=== PATIENT | female | born 2000 | race Hispanic/Latino ===

== ENCOUNTER 2021-07-05 14:05 | Emergency (ER) ==
[2021-07-05 14:40] VITALS: BP 132/79
== END 2021-07-05 15:20 ==
LOC: ED 14:05
DX: R07.89 Other chest pain (principal); J02.9 Acute pharyngitis, unspecified; Z53.21 Procedure and treatment not carried out due to patient leaving prior to being seen by health care provider

== ENCOUNTER 2021-10-12 15:19 | Emergency (ER) | payer MEDICAID ==
--- NOTE | 2021-10-12 16:16 | Emergency Department Report ---
HPI - General Chief Complaint: Extremity Injury, Lower Time Seen by Provider: 10/12/21 15:55 - HPI HPI: 20-year-old -[place] female presents to the emergency department with complaint of right lateral ankle pain and right lateral foot pain since she twisted her foot and ankle while going down stone on yesterday. She says that she has injured the same foot and ankle 2 previous times within the same year but has never had it evaluated. She rates the pain at an 8 out of 10 in intensity. It worsens with palpation, movement, or attempting to bear weight. The patient is having difficulty with bearing weight and ambulation secondary to the pain. She denies any other past medical history. She has not taken anything for symptoms prior to presentation today. ED Past Medical Hx - Surgical History Additional Surgical History: tobsils - Medications Home Medications: Home Medications Medication Instructions Recorded Confirmed Last Taken Type Ibuprofen [Motrin 800 MG tab] 800 mg PO Q8HR PRN #20 tablet 10/12/21 Unknown Rx ED Review of Systems ROS: Stated complaint: RIGHT ANKLE INJURY Other details as noted in HPI Comment: All other systems reviewed and negative Constitutional: denies: chills, fever Musculoskeletal: joint swelling, arthralgia Skin: denies: rash, lesions Neurological: denies: numbness, paresthesias Physical Exam - Physical Exam Physical Exam: GENERAL: The patient is well-developed well-nourished. HENT: Normocephalic. Atraumatic. Patient has moist mucous membranes. EYES: Extraocular motions are intact. NECK: Supple. Trachea is midline. SKIN: Nonpitting swelling of the circumferential right ankle and of the dorsal midfoot. NEURO: The patient is awake, alert, and oriented. The patient is cooperative. The patient has no focal neurologic deficits. Normal speech. MUSCULOSKELETAL: Tenderness to palpation along the right lateral malleolus and right lateral midfoot. +2/4 dorsalis pedis pulse and capillary refill less than 2 seconds. ED Medical Decision Making - Radiology Data Radiology results: image reviewed interpreted by me: X-ray of the right ankle and right foot does not show any fracture, dislocation, or any other acute process. - Medical Decision Making The patient rolled her foot and ankle yesterday and presents with pain and swelling. She is neurovascularly intact. X-rays do not show any fracture, dislocation, or any acute process. She was placed in a splint and placed on crutches to be nonweightbearing. She was given outpatient referrals for orthopedist. Critical Care Time: No Critical care attestation.: If time is entered above; I have spent that time in minutes in the direct care of this critically ill patient, excluding procedure time. ED Disposition Clinical Impression: Right foot pain Right ankle sprain Qualifiers: Encounter type: initial encounter Involved ligament of ankle: unspecified ligament Qualified Code(s): S93.401A - Sprain of unspecified ligament of right ankle, initial encounter Disposition: HOME / SELF CARE / HOMELESS Is pt being admited?: No Condition: Stable Instructions: Ankle Sprain, Elastic Bandage and RICE Therapy, Foot Pain Additional Instructions: Please follow-up with a primary care physician. I am giving you a referral for a local orthopedist, Dr. Quintero. Return to the emergency department with any worsening of your symptoms, new or concerning symptoms not addressed during this current emergency department visit, or with any acute distress. Prescriptions: Ibuprofen [Motrin 800 MG tab] 800 mg PO Q8HR PRN #20 tablet PRN Reason: Pain , Severe (7-10) Referrals: JABIER QUINTERO MD [Staff Physician] - 3-5 Days Time of Disposition: 16:58
[2021-10-12 16:22] VITALS: BP 137/91
[2021-10-12] MEDS ORDERED: IBUPROFEN 800 MG TAB PO ONE (16:43)
--- NOTE | 2021-10-12 17:45 | XRay Report ---
Right ankle-3 views Right foot-4 views INDICATION: Acute right foot and ankle pain. COMPARISON: None. IMPRESSION: No acute fracture in the ankle or foot. Generalized soft tissue swelling about the fore foot, especially along the dorsum. No radio opaque foreign body or obvious soft tissue wound. Normal alignment. No significant DJD. Signer Name: Rashaad Bryant MD Signed: 10/12/2021 5:41 PM Workstation Name: [id number]
== END 2021-10-13 01:36 | disposition home or self-care (01) ==
LOC: ED 15:19
DX: S93.401A Sprain of unspecified ligament of right ankle, initial encounter (principal); X50.1XXA Overexertion from prolonged static or awkward postures, initial encounter; Y93.89 Activity, other specified; Y92.89 Other specified places as the place of occurrence of the external cause; Y99.8 Other external cause status

== ENCOUNTER 2022-05-07 00:57 | Emergency (ER) | payer MEDICAID | END 2022-05-07 05:22 | disposition left against medical advice (07) | LOC: ED 00:57 | DX: S09.90XA Unspecified injury of head, initial encounter (principal); Z53.21 Procedure and treatment not carried out due to patient leaving prior to being seen by health care provider; X58.XXXA Exposure to other specified factors, initial encounter; Y93.89 Activity, other specified; Y92.89 Other specified places as the place of occurrence of the external cause; Y99.8 Other external cause status ==

== ENCOUNTER 2022-05-20 17:56 | Emergency (ER) | payer MEDICAID ==
[2022-05-20 18:04] VITALS: BP 138/71
== END 2022-05-21 08:30 | disposition left against medical advice (07) ==
LOC: ED 17:56
DX: R51.9 Headache, unspecified (principal); Z53.21 Procedure and treatment not carried out due to patient leaving prior to being seen by health care provider